=== PATIENT | female | born 1970 | race Caucasian/White ===

== ENCOUNTER 2016-11-29 17:50 | Emergency (ER) | payer OTHER ==
[2016-11-29] MEDS ORDERED: KETOROLAC 30 MG/ML VIAL ONE (19:06)
== END 2016-11-29 19:36 | disposition home or self-care (01) ==
LOC: ER 17:50
DX: N92.4 Excessive bleeding in the premenopausal period (principal); N93.8 Other specified abnormal uterine and vaginal bleeding; F17.210 Nicotine dependence, cigarettes, uncomplicated
CPT/HCPCS: 36415; 80053; 81001; 83690; 84703; 85025; 96374